=== PATIENT | female | born 1970 | race Caucasian/White ===

== ENCOUNTER → 2017-10-10 | Outpatient (CLI) | payer OTHER | LOC: FIMAGING 07:47 | PROVIDERS: ATTEND Radiology Diagnostic Radiology | DX: I83.893 Varicose veins of bilateral lower extremities with other complications (principal); I87.2 Venous insufficiency (chronic) (peripheral) ==

== ENCOUNTER 2017-11-09 11:12 | Day surgery (SDC) | payer OTHER ==
[2017-11-09] MEDS ORDERED: HEPARIN 10,000 UNIT/10 ML MDV (1,000 UNIT/ML) IVP PRN (11:36)
[2017-11-09] MEDS ORDERED: ALTEPLASE 2 MG VIAL IVP PRN (11:36)
[2017-11-09] MEDS ORDERED: MEPERIDINE 25 MG/ML SYR IVP PRN (11:36)
[2017-11-09] MEDS ORDERED: FLUMAZENIL 0.5 MG/5 ML MDV IVP PRN (11:36)
[2017-11-09] MEDS ORDERED: PROTAMINE SULFATE 50 MG/5 ML VIAL IVP PRN (11:36)
[2017-11-09] MEDS ORDERED: ONDANSETRON 4 MG/2 ML VIAL IVP ONE (11:36)
[2017-11-09] MEDS ORDERED: ceFAZolin 2 GM/SWFI 2 GM/20 ML SYR IVP ONE (11:36)
[2017-11-09] MEDS ORDERED: GLUCAGON HCL 1 MG VIAL IVP PRN (11:36)
[2017-11-09] MEDS ORDERED: NALOXONE HCL 0.4 MG/ML INJ IVP PRN (11:36)
[2017-11-09] MEDS ORDERED: MIDAZOLAM 2 MG/2 ML VIAL IVP PRN (11:36)
[2017-11-09] MEDS ORDERED: fentaNYL 100 MCG/2 ML INJ IVP PRN (11:36)
[2017-11-09] MEDS ORDERED: NS 1,000 ML IV ONE (11:36)
[2017-11-09] MEDS ORDERED: fentaNYL 100 MCG/2 ML INJ ONE (11:44)
[2017-11-09] MEDS ORDERED: NALOXONE HCL 0.4 MG/ML INJ ONE (11:44)
[2017-11-09] MEDS ORDERED: FLUMAZENIL 0.5 MG/5 ML MDV IVP ONE (11:44)
[2017-11-09] MEDS ORDERED: MIDAZOLAM 2 MG/2 ML VIAL ONE (11:44)
[2017-11-09] MEDS ORDERED: LIDO/EPI 1% **for epidural** 30 ML SDV ONE (13:56)
[2017-11-09] MEDS ORDERED: SODIUM TETRADECYL SULFATE 3% 2 ML VIAL IV ONE (13:56)
--- NOTE | 2017-11-09 14:04 | PDGENHP ---
History & Physical Chief Complaint: SYMPTOMATIC RLE VARICOSITIES History of Present Illness: WORSENING SYMPTOMS DESPITE OF STOCKINGS. Pertinent Past, Social, Family History: NON SMOKER, APPENDECTOMY, MICRODISCECTOMY LUMBAR Relevant Physical Exam: ROPEY VARICOSITIES RLE MAPPED Cardiorespiratory Assessment: RRR, CTA
--- NOTE | 2017-11-09 14:04 | PDPROPOC ---
Sedation Plan of Care Sedation Plan of Care: vital signs stable, mental status noted, patient educated of risks, benefits, alternatives, patient can tolerate sedation ASA Classification: ASA 1 Planned drugs: fentanyl, midazolam Mallampati Score: Class 1 Mallampati Reference Image: Patient passed 3-3-2 rule?: Yes
[2017-11-09] MEDS ORDERED: HYDROCODONE/APAP 5/325 TAB PO PRN (15:48)
[2017-11-09] MEDS ORDERED: ONDANSETRON DISINTEGRATING 4 MG TAB PO PRN (15:48)
[2017-11-09] MEDS ORDERED: IBUPROFEN 200 MG TAB PO ONE (15:48)
[2017-11-09] MEDS ORDERED: ONDANSETRON 4 MG/2 ML VIAL IVP PRN (15:48)
[2017-11-09] MEDS ORDERED: NS 1,000 ML IV SCH (16:00)
[2017-11-09 18:01] VITALS: BP 112/71
== END 2017-11-09 18:52 | disposition home or self-care (01) ==
LOC: FIMAGING 11:12
PROVIDERS: ATTEND Radiology Diagnostic Radiology
PROC: B54BZZA Ultrasonography of Right Lower Extremity Veins, Guidance (ICD-10-PCS; principal; 2017-11-09 15:30)
PROC: 06DY3ZZ Extraction of Lower Vein, Percutaneous Approach (ICD-10-PCS; principal; 2017-11-09 15:30)
PROC: 06LP3ZZ Occlusion of Right Saphenous Vein, Percutaneous Approach (ICD-10-PCS; principal; 2017-11-09 15:30)
PROC: 3E033TZ Introduction of Destructive Agent into Peripheral Vein, Percutaneous Approach (ICD-10-PCS; principal; 2017-11-09 15:30)
DX: I83.891 Varicose veins of right lower extremity with other complications (principal)
CPT/HCPCS: J0690; J2250; J2310; J3010

== ENCOUNTER 2018-06-05 11:16 | Day surgery (SDC) | payer OTHER ==
--- NOTE | 2018-06-04 16:01 | GHP ---
DATE OF ADMISSION: 06/05/2018 DATE OF SURGERY: 06/05/2018. 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 Her right knee has had pain, swelling, and mechanical symptoms for some time now. She has had an MRI clifton t shows a number of concerns. She has a posterior horn medial meniscal tear that does include the ar ea near the meniscal root. Arthroscopy is planned. I am anticipating meniscal work, possibly a meni scal root repair. Additional concerns on the MRI are a lateral meniscus tear; she does have some gra de 2-3 articular wear of the patellofemoral joint and some mild medial compartment and lateral compar tment degenerative changes, grade 1-2 wear. PAST MEDICAL HISTORY: No current medical problems. She has had surgery on an L-spine disk. She has had an appendectomy, adenoid surgery, occasional PVC. MEDICATIONS: She is taking no medications. ALLERGIES: No known drug allergies. SOCIAL HISTORY: She is a nonsmoker. REVIEW OF SYSTEMS: Negative for cardiopulmonary disease. PHYSICAL EXAMINATION: GENERAL: The patient is a well-developed, well-nourished female in no apparen t distress. HEAD AND NECK: Normocephalic, atraumatic. CHEST: Clear. CARDIOVASCULAR: Regular rat e and rhythm. ABDOMEN: Soft. NEUROLOGIC: She is alert and oriented x3. EXTREMITIES: Examination of the right knee shows a small effusion. She has full extension and flexion to 130 degrees. She h as mild medial joint line tenderness and a mildly positive medial Naz test. SKIN: Intact. CL ROVASCULAR: Intact. IMPRESSION: Right knee has a combination of meniscal pathology, most notably a posterior horn, media l meniscal tear and some areas of chondromalacia. PLAN: Right knee arthroscopy, chondroplasty, meniscal work as needed, and this work may include a me niscal repair, including a meniscal wound repair. She has signed her consent form and wishes to proc eed. /[id number]/MODL
[2018-06-05] MEDS ORDERED: LR 1,000 ML IV SCH (11:37)
[2018-06-05] MEDS ORDERED: ACETAMINOPHEN 500 MG TAB PO ONE (11:37)
[2018-06-05] MEDS ORDERED: ceFAZolin 2 GM/DEXTROSE 100 ML IV ONE (11:37)
[2018-06-05] MEDS ORDERED: LIDOCAINE 1% 2 ML INJ ID PRN (11:38)
[2018-06-05] MEDS ORDERED: LR 1,000 ML IV ONE (11:38)
--- NOTE | 2018-06-05 11:51 | PDANEPAE ---
ANE History of Present Illness Knee arthroscopy,R ANE Past Medical History - Cardiovascular History Hx Hypertension: No Hx Arrhythmias: No Hx Chest Pain: No Hx Coronary Artery / Peripheral Vascular Disease: No Hx CHF / Valvular Disease: No Hx Palpitations: Yes Cardiovascular History Comment: hx of palpitations. cardiac work up 09/2017 - Pulmonary History Hx COPD: No Hx Asthma/Reactive Airway Disease: No Hx Recent Upper Respiratory Infection: No Hx Oxygen in Use at Home: No Hx Sleep Apnea: No Sleep Apnea Screening Result - Last Documented: Negative - Neurologic History Hx Cerebrovascular Accident: No Hx Seizures: No Hx Dementia: No - Endocrine History Hx Diabetes: No Obesity: mild - Renal History Hx Renal Disorders: No - Liver History Hx Hepatic Disorders: No - Neurological & Psychiatric Hx Hx Neurological and Psychiatric Disorders: No - Cancer History Hx Cancer: No - Congenital Disorder History Hx Congenital Disorders: No - GI History GERD: no Hx Gastrointestinal Disorders: Yes Gastrointestinal History Comment: hx of reflux - Other Health History Other Health History: wears glasses/ contacts - Chronic Pain History Chronic Pain: Yes (right knee) - Surgical History Prior Surgeries: 10/2017 scleratherapy, blebectomy and vein ablation on right leg with Mao. ADNOIDS. APPY. microdiscectomy ANE Review of Systems Review of Systems: - Exercise capacity METS (RN): 4 METS ANE Patient History - Allergies Allergies/Adverse Reactions: No Known Allergies Allergy (Verified 05/25/18 16:09) - Home Medications Home Medications: NK [No Known Home Meds] 05/25/18 [Last Taken Unknown] - Anes Hx Anes Hx: no prior problems - Smoking Hx Smoking Status: Never smoked - Alcohol Use Alcohol Use: Occasionally - Family Anes Hx Family Hx Anesthesia Complications: unknown- adopted ANE Labs/Vital Signs - Vital Signs Height: 167.64 cm Weight: 77.111 kg ANE Physical Exam - Airway Neck exam: FROM Mallampati Score: Class 2 Mouth exam: normal dental/mouth exam - Pulmonary Pulmonary: clear to auscultation - Cardiovascular Cardiovascular: regular rate and rhythym - ASA Status ASA Status: II ANE Anesthesia Plan Anesthesia Plan: GA w LMA
[2018-06-05] MEDS ORDERED: MIDAZOLAM 2 MG/2 ML VIAL IVP ONE (12:10)
[2018-06-05] MEDS ORDERED: BUPIVACAINE 0.5% 30 ML SDV ONE (12:35)
[2018-06-05] MEDS ORDERED: BUPIVACAINE/EPI 0.5% 30 ML SDV ONE (12:35)
[2018-06-05] MEDS ORDERED: EPINEPHrine 1 MG/ML INJ ONE (12:36)
[2018-06-05] MEDS ORDERED: PROPOFOL 200 MG/20 ML VIAL ONE (12:40)
[2018-06-05] MEDS ORDERED: fentaNYL 250 MCG/5 ML INJ ONE (12:40)
[2018-06-05] MEDS ORDERED: DEXAMETHASONE 4 MG/ML VIAL ONE ×2 (12:41)
--- NOTE | 2018-06-05 13:02 | PDHPUP ---
History & Physical Update H&P update statement: This history and physical update is based on an assessment of the patient which was completed after admission or registration (within 24 hours), but prior to the surgery/procedure. no change H&P update: H&P reviewed & patient examined (no change)
[2018-06-05] MEDS ORDERED: fentaNYL 100 MCG/2 ML INJ ONE ×2 (14:13→15:35)
[2018-06-05] MEDS ORDERED: ONDANSETRON 4 MG/2 ML VIAL ONE ×2 (14:35→16:26)
[2018-06-05] MEDS ORDERED: NALOXONE HCL 0.4 MG/ML INJ IVP PRN (15:06)
[2018-06-05] MEDS ORDERED: fentaNYL 100 MCG/2 ML INJ IVP PRN (15:06)
[2018-06-05] MEDS ORDERED: ONDANSETRON 4 MG/2 ML VIAL IVP PRN (15:06)
[2018-06-05] MEDS ORDERED: oxyCODONE IR 5 MG TAB PO PRN (15:06)
[2018-06-05] MEDS ORDERED: HYDROCODONE/APAP 5/325 TAB PO PRN (15:06)
[2018-06-05] MEDS ORDERED: HYDROCODONE/APAP 5/325 TAB ONE (15:35)
--- NOTE | 2018-06-05 15:37 | POSTANESTH ---
Post Anesthetic Evaluation Cardiovascular Status: Normal, Stable Respiratory Status: Normal, Stable Level of Consciousness/Mental Status: Can Participate in Eval Pain Control: Adequate, Prn Tx Ordered Nausea/Vomiting Control: Adequate, Prn Tx Ordered Complications Possibly Related to Anesthesia: None Noted
--- NOTE | 2018-06-05 16:04 | GOP ---
DATE OF OPERATION: SURGEON: Jonel Horvath MD FLAT GRINDER OPERATOR: Daniel Mckeon, CSFA, LSA. ANESTHESIOLOGIST: Jeff Meyers MD. PREOPERATIVE DIAGNOSIS: Right knee medial meniscal tear at the meniscal root, possible lateral menis ravi tear. POSTOPERATIVE DIAGNOSIS: Right knee medial meniscal tear, a radial tear at the meniscal root, medial compartment chondromalacia. PROCEDURE PERFORMED: Right knee arthroscopy, medial meniscus root repair, medial femoral chondroplas ty. FINDINGS: Exam under anesthesia demonstrates good range of motion. Trace effusion. Stable ligament ous exam. On arthroscopy, there is some patellofemoral chondromalacia. It is fairly mild, grade 1-2 , along the median eminence of the patella, some mild fraying, grade 1 in the trochlear groove. In t he notch, the ACL appears intact. In the medial compartment, there is some medial femoral chondromal acia. It is diffuse grade 2. None of it looks very deep. Some of the edges on the lateral-most med ial femoral condyle are a little unstable, amenable to small areas of light chondroplasty. Minimal c hondromalacia on the medial plateau. The medial meniscus posterior horn is abnormal. There is a rad ial tear that produces a separation and it appears to be full thickness through the meniscus. It nick s generate some meniscus instability. The meniscus is subluxing a little posteriorly and a little bi t medially, it is not a flap or grossly unstable. Condition of the meniscus is in good shape. The m idbody and anterior horns look okay. The lateral compartment has minimal chondromalacia, and the lat eral meniscus appears to be stable and fine. SPECIMENS: No specimens. ESTIMATED BLOOD LOSS: Minimal. INDICATIONS: The patient is a 48-year-old female who presents with knee pain and swelling. Her work up has included an MRI that shows a medial meniscal root tear, it looks to be full thickness radial a nd it does allow some extrusion of the meniscus at the joint line on the coronal views. Arthroscopy and meniscal repair have been recommended. DESCRIPTION OF PROCEDURE: The patient was taken to the operating room, placed supine on the operatin g table, placed under general anesthetic with laryngeal mask ventilation. She received 2 g of IV Anc ef. A tourniquet was fit high on the right thigh. Right thigh was put in a leg zuniga. Knee was pr epped and draped in usual fashion. Standard arthroscopy portals were used, and the entire knee was i nspected with the above-noted findings. I addressed the medial femoral condyle with a small rotary s haver, lightly debriding it and smoothing it, largely to visualize the posterior horn nicely and to s hape the femoral condyle articular cartilage into more stable surface. The posterior horn of the med ial meniscus appeared to be a reasonable candidate for meniscal repair, especially with a good qualit y meniscus. I used an Arthrex System for meniscal root repair. I used a guide system that allowed e to pass a guidepin from a point on the medial tibial metaphyseal surface to the root area of the po sterior horn medial meniscus. I wanted to design my tunnel to come a bit lateral and a little anteri or to drawer the meniscus in and reduce it. I used an Arthrex guidepin with a flip cutter, the guide pin was passed and its position confirmed arthroscopically, I used a little flip cutter to retract th e cutting head about 10 mm to make a docking hole in the root attachment area. I passed a loop of weaver ture out of this tunnel and out of my anteromedial portal to later pass my meniscal repair sutures. Through an anterior medial portal just a little bit medial as a separate portal, I used a meniscal Sc orpion to pass 2 FiberWire sutures. Each were then looped back through themselves to cinch the knot down. These 2 tails were then drawn through my pin tunnel in the tibia such that they emerged on the anterior surface of the tibia to be tied over a small button. The sutures were passed through the b utton. The meniscal repair sutures were placed under tension, and using a knot pusher, I pushed mult iple knots down onto the button to secure the repair. On arthroscopic inspection, the meniscus was d rawn more medial and more anterior in a more anatomic position, the docking tunnel was providing a cl ot at the site of repair. The sutures looked flush. I made sure the femoral condyle was smooth. Th e joint was irrigated, and I placed 15 cc of 0.5% plain Marcaine in the joint. I closed the 4 portal s and the small incision on the anterior tibia with Monocryl, then 4-0 Prolene. The wounds were dres sed with Betadine-soaked Adaptic, 4 x 4's, sterile Webril, and a long-leg SURJIT stocking applied. Post operatively, she will be protected weightbearing. There were no complications. DRAINS: No drains. COUNTS: All counts correct. The patient was taken in stable condition to recovery and the tourniquet was not required. My surgical training specialist, Daniel Mckeon, was a medical necessity for this root repair for leg positioni ng and suture management for this challenging arthroscopic posterior horn medial meniscal root repair . /[id number]/MODL
[2018-06-05 16:59] VITALS: BP 107/63
== END 2018-06-05 16:45 | disposition home or self-care (01) ==
LOC: FSGY 11:16
PROVIDERS: ATTEND Orthopaedic Surgery
DX: S83.241A Other tear of medial meniscus, current injury, right knee, initial encounter (principal); M94.261 Chondromalacia, right knee
CPT/HCPCS: J0171; J0690; J1100; J2250; J2270; J2405; J2704; J3010

== ENCOUNTER → 2019-01-10 | Outpatient (CLI) | payer OTHER | LOC: FIMAGING 07:33 ==

== ENCOUNTER → 2019-01-18 | Outpatient (CLI) | payer OTHER | LOC: FIMAGING 11:37 ==